=== PATIENT | female | born 1990 | race Caucasian/White ===

== ENCOUNTER 2017-09-04 20:38 | Emergency (ER) | payer OTHER ==
[~2017-09-04] VITALS: Ht 152.4 cm; Wt 57.3 kg
[2017-09-04 20:46] VITALS: BP 113/59; PULSE 87; RESP 18; TEMP 98.3; O2SAT 98
--- NOTE | 2017-09-04 21:21 | PD ---
HPI Chief Complaint: left arm pain Time Seen by Provider: 20:53 Travel History International Travel<30 days: No Contact w/Intl Traveler<30days: No Traveled to known affect area: No History of Present Illness HPI 26yo F with no PMH presents to the ED with c/o left wrist, hand and elbow pain s /p slip and fall yesterday at 6am. 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 Denies any head trauma, LOC, chest pain, sob, n/v, abdominal pain, focal weakness. Pt said she has pain mainly in her left wrist and feels tinging in her left hand. PFSH Past Medical History Diminished Hearing: No Tetanus Vaccination: < 5 Years Influenza Vaccination: No ?: Unknown LMP: 08/18/17 Past Surgical History Tonsillectomy: Yes Social History Alcohol Use: No Tobacco Use: No Substance Use: No Allergies-Medications (Allergen,Severity, Reaction): Coded Allergies: No Known Allergies (Verified Allergy, Unknown, 09/04/17) Reported Meds & Prescriptions Reported Meds & Active Scripts Active Ibuprofen 600 Mg Tab 600 Mg PO Q8HR PRN Review of Systems Except as stated in HPI: all other systems reviewed are Neg Physical Exam Narrative GENERAL: 26yo F in mild distress. SKIN: Focused skin assessment warm/dry. HEAD: Atraumatic. Normocephalic. EYES: Pupils equal and round. No scleral icterus. No injection or drainage. ENT: No nasal bleeding or discharge. Mucous membranes pink and moist. NECK: Trachea midline. No JVD. CARDIOVASCULAR: Regular rate and rhythm. No murmur appreciated. RESPIRATORY: No accessory muscle use. Clear to auscultation. Breath sounds equal bilaterally. GASTROINTESTINAL: Abdomen soft, non-tender, nondistended. No rebound tenderness or guarding. MUSCULOSKELETAL: LUE: +TTP distal radius and ulna. No gross deformities. No edema. No scaphoid ttp. Mild diffuse MCP tenderness. Pt cannot extend her left wrist and has decreased finger movement because of pain. Sensation intact but there is diffuse tingling. NEUROLOGICAL: Awake and alert. No obvious cranial nerve deficits. Motor grossly within normal limits. Normal speech. PSYCHIATRIC: Appropriate mood and affect; insight and judgment normal. Data Data Last Documented VS Vital Signs Date Time Temp Pulse Resp B/P (MAP) Pulse Ox O2 Delivery O2 Flow Rate FiO2 09/04/17 20:46 98.3 87 18 113/59 (77) 98 Orders Orders Hand, Limited (2vws) (09/04/17 ) Wrist, Limited (Ap&Lat) (09/04/17 ) Elbow, Limited (Ap&Lat) (09/04/17 ) Ketorolac Inj (Toradol Inj) (09/04/17 21:30) Ed Discharge Order (09/04/17 22:57) [facility] Medical Decision Making Medical Screen Exam Complete: Yes Emergency Medical Condition: Yes Differential Diagnosis Contusion vs. fracture Narrative Course 26yo F with left wrist pain s/p slip and fall at work over 24 hours ago. Xray left wrist, hand and elbow negative for acute abnormality. Pt given toradol and feels better. Pt is now able to extend her left wrist as well as fully flex and extend her fingers. She is well appearing, will place her in wrist splint for comfort and have her follow up with her primary care physician. Diagnosis Primary Impression: Wrist pain, acute Qualified Codes: M25.532 - Pain in left wrist Patient Instructions: General Instructions Departure Forms: Tests/Procedures Additional Instructions: Please follow up with your primary care physician in 2-3 days. Return to the ED if symptoms worsen. Med/Other Pt SpecificInfo: Prescription(s) given Scripts Ibuprofen (Ibuprofen) 600 Mg Tab 600 MG PO Q8HR Y for PAIN, #20 TAB 0 Refills Prov: Maryuri Briones 09/04/17 Disposition: 01 DISCHARGE HOME Condition: Stable Vanessa Brionsecamila MATHUR Sep 04, 2017 21:21
[2017-09-04] MEDS ORDERED: KETOROLAC TROMETHAMINE 60 MG/2 ML (IM) VIAL IM ONE (21:30)
--- NOTE | 2017-09-04 22:13 | RADRPT ---
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 Patient reports that signs and symptoms have been present for 1 day and indicates a pain score of 10/10. MEDICAL/SURGICAL HISTORY: None. None. COMPARISON: None. FINDINGS: 2 views of the left hand show flexion of the interphalangeal joints resulting in overlap generating l imitations to the evaluation distal to the proximal phalanges of the second through fifth fingers. Th e visualized portions of the hand show no fracture or dislocation. No soft tissue swelling or radiopa que foreign body. CONCLUSION: Limited study. No acute abnormality. Electronically signed by: Loi Calvo MD 09/04/2017 10:12 PM EDT
--- NOTE | 2017-09-04 22:13 | RADRPT ---
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 Patient reports that signs and symptoms have been present for 1 day and indicates a pain score of 9/10. MEDICAL/SURGICAL HISTORY: None. None. COMPARISON: None. FINDINGS: Bony structures are intact and in normal alignment. Joints are intact without dislocation or signifi cant arthropathy. Osseous density is normal. Soft tissues are unremarkable. No radiopaque foreign bodies seen. CONCLUSION: Negative examination Electronically signed by: Loi Calvo MD 09/04/2017 10:12 PM EDT
--- NOTE | 2017-09-04 22:14 | RADRPT ---
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 Patient reports that signs and symptoms have been present for 1 day and indicates a pain score of 7/10. MEDICAL/SURGICAL HISTORY: None. None. COMPARISON: None. FINDINGS: Bony structures are intact and in normal alignment. Joints are intact without dislocation or signifi cant arthropathy. Osseous density is normal. Soft tissues are unremarkable. No radiopaque foreign bodies seen. CONCLUSION: Negative examination Electronically signed by: Loi Calvo MD 09/04/2017 10:13 PM EDT
[2017-09-04] MEDS ORDERED: IBUP-232 PO (22:57)
== END 2017-09-04 23:03 | disposition home or self-care (01) ==
LOC: PHEFT 20:38
DX: M25.532 Pain in left wrist (principal); W01.0XXA Fall on same level from slipping, tripping and stumbling without subsequent striking against object, initial encounter; Y99.0 Civilian activity done for income or pay
CPT/HCPCS: 73070; 73100; 73120; 96372; 99283; J1885